=== PATIENT | male | born 1965 | race Caucasian/White ===

== ENCOUNTER 2016-08-16 20:02 | Emergency (ER) | payer BC ==
[~2016-08-16] VITALS: Ht 180.3 cm; Wt 97.5 kg
--- NOTE | ~2016-08-16 | EKG ---
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
[2016-08-16] MEDS ORDERED: OMEPRAZOLE 20 M20 M1 PO (20:13)
[2016-08-16] MEDS ORDERED: ANDROGEL75 GM TD (20:14)
[2016-08-16] MEDS ORDERED: FLONASE 0.05%50 MCG NASAL (20:14)
[2016-08-16] MEDS ORDERED: PROAIR RESPICL90 MCG IH (20:14)
[2016-08-16] MEDS ORDERED: SINGULAIR 10 MG10 M1 PO (20:15)
[2016-08-16] MEDS ORDERED: BREO ELLIPTA 11 EACH IH (20:15)
[2016-08-16] MEDS ORDERED: XYZAL5 MG PO (20:15)
[2016-08-16 21:10] LABS: URINE BILIRUBIN NEGATIVE (Negative); URINE BLOOD NEGATIVE (Negative); URINE COLOR YELLOW; URINE GLUCOSE-RANDOM* NEGATIVE (Negative); URINE KETONES NEGATIVE (Negative); URINE LEUKOCYTES-REFLEX NEGATIVE (Negative); URINE PROTEIN (DIPSTICK) NEGATIVE (Negative); URINE SPECIFIC GRAVITY >= 1.030 (1.003-1.035); URINE UROBILINOGEN 0.2 E.U./dl (0.2-1.0)
[2016-08-16 21:28] LABS: ABSOLUTE NEUTROPHILS 7.7 thou/uL (1.4-8.2); BASOPHILS 0.2 % (0.0-2.0); EOSINOPHILS 0.2 % (0.0-3.0); HEMOGLOBIN 14.9 gm/dL (14.0-18.0); LYMPHOCYTES 12.7 % (24.0-44.0); MCH 29.5 pg (26.0-34.0); MCV 86.8 fL (80.0-100.0); MONOCYTES 7.1 % (1.0-8.0); PLATELET COUNT 301 thou/uL (150-400); POLYS 79.8 % (36.0-66.0); RBC 5.07 mil/uL (4.50-6.00); RDW 13.7 % (10.5-14.5); WBC 9.7 thou/uL (4.0-11.0)
[2016-08-16 21:31] LABS: MANUAL DIFF NO
[2016-08-16 21:38] LABS: ANION GAP 9 mmol/L (7-16); BUN 15 mg/dL (7-18); CALCIUM 8.5 mg/dL (8.5-10.1); CHLORIDE 105 mmol/L (98-107); CO2 25 mmol/L (21-32); GLUCOSE 108 mg/dL (74-106); POTASSIUM 4.1 mmol/L (3.5-5.1); SODIUM 139 mmol/L (136-145)
[2016-08-16 21:45] LABS: ALBUMIN 3.9 g/dL (3.4-5.0); ALKALINE PHOSPHATASE 93 U/L (46-116); SGOT 30 U/L (15-37); SGPT 50 U/L (30-65); TOTAL BILIRUBIN 0.3 mg/dL (<0.1-1.0); TOTAL PROTEIN 7.2 g/dL (6.4-8.2); TROPONIN-I < 0.04 ng/mL (<0.04-0.07)
[2016-08-16] MEDS ORDERED: BENTYL 20 MG TA20 M1 PO (22:00)
[2016-08-16] MEDS ORDERED: SENOKOT-S1 TA1 PO (22:00)
[2016-08-16 22:48] VITALS: BP 124/76
== END 2016-08-16 22:49 | disposition home or self-care (01) ==
LOC: ER 20:02
PROVIDERS: Emergency Medicine
DX: K59.00 Constipation, unspecified (principal); K21.9 Gastro-esophageal reflux disease without esophagitis; J45.990 Exercise induced bronchospasm; Z87.891 Personal history of nicotine dependence